=== PATIENT | male | born 1970 | race Hispanic/Latino ===

== ENCOUNTER 2024-05-23 06:22 | Emergency (ER) | payer OTHER ==
[~2024-05-23] VITALS: Ht 172.7 cm; Wt 83.9 kg
--- NOTE | 2024-05-23 06:35 | NUR ---
PATIENT REPORTS FRONTAL HEADACHE PRESSURE ONSET FRIDAY AFTERNOON. 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 WAS ADVISED BY [facility] CALL [facility] NURSE TO GO TO AND ED FOR EVALUATION AND CT SCAN
--- NOTE | 2024-05-23 07:07 | ERN ---
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 Since then he has had an increasing headache that has been become severe disabling and unremitting. The headache is centered on his forehead and behind his eyes. He had tried narcotics Tylenol and ibuprofen and none of them failed to relieve the headache. Patient does not have dizziness or vertigo, but he does have photosensitivity. Timing/Duration: 24 hours, getting worse Severity: severe Associated Symptoms: headaches Allergies: Coded Allergies: No Known Allergies (Unverified Allergy, Unknown, 05/23/24) Past Medical History Past Medical History: No Pertinent History Past Surgical History: None ROS Dictation CONSTITUTIONAL: NO CHILLS, NO FEVER, NO WEAKNESS, NO DIAPHORESIS, NO MALAISE. HEAD/FACE: NO SIGNS OF TRAUMA. EENT: NO EYE PAIN, NO BLURRED VISION, NO TEARING, NO DOUBLE VISION, NO EAR P AIN, NO EAR DISCHARGE, NO NOSE PAIN, NO NASAL CONGESTION, NO THROAT PAIN, NO THROAT SWELLING, NO MOUTH PAIN. RESPIRATORY: NO COUGH, NO ORTHOPNEA, NO SOB, NO STRIDOR, NO WHEEZING. CARDIOVASCULAR: NO CHEST PAIN, NO EDEMA, NO PALPITATIONS, NO SYNCOPE. GASTROINTESTINAL/ABDOMINAL: NO ABDOMINAL PAIN, NO CONSTIPATION, NO DIARRHEA, NO NAUSEA, NO VOMITING. GENITOURINARY: NO ABNORMAL DISCHARGE, NO DYSURIA, NO FREQUENT URINATION, NO HEMATURIA. NO COMPLAINTS OF PAIN IN THE GENITALS. MUSCULOSKELETAL: NO BACK PAIN, NO GOUT, NO JOINT PAIN, NO JOINT SWELLING, NO MUSCLE PAIN, NO MUSCLE STIFFNESS, NO NECK PAIN. INTEGUMENTARY: NO CHANGE IN COLOR, NO CHANGE IN HAIR/NAILS, NO DRYNESS, NO LESION, NO LUMPS, NO RASH. NEUROLOGICAL/PSYCH: NO ANXIETY, NOT DEPRESSED, NO EMOTIONAL PROBLEM, NO HEADACHE, NO NUMBNESS, NO PRE-EXISTING DEFICIT, NO HISTORY OF SEIZURES, NO TREMORS, NO WEAKNESS. HEMATOLOGIC/LYMPHATIC: NOT ANEMIC, NO HISTORY OF BLOOD CLOTS, NO APPARENT BLEEDING, NO BRUISING, GLANDS NOT SWOLLEN. ALL SYSTEMS NEGATIVE, EXCEPT NOTED. Neuro: (+) headache Physical Exam Physical Exam Dictation VITAL SIGNS: REVIEWED. GENERAL APPEARANCE: ALERT, ORIENTED X3, NO ACUTE DISTRESS, OBESE. HEAD AND FACE: NON-TRAUMATIC. EYES: PERRL, PINK CONJUNCTIVAS, EYELID NO TRAUMA, ANTERIOR CHAMBER CLEAR. EARS: PINNAS INTACT AND NO SIGNS OF TRAUMA OR ERYTHEMA. EAR CANALS CLEAR AND NO DISCHARGE. TMS NO ERYTHEMA. NOSE: NO DISCHARGE, NO BLEEDING. OROPHARYNX: MOUTH NORMAL, TEETH NO CARIES, TONGUE PINK. PHARYNX CLEAR, LEFT JAW PAIN ON PALPATION NECK: SUPPLE, NON-TENDER, NO THYROMEGALY, NO MASSES, NO JVD, NO BRUITS. BREAST: DEFERRED. CHEST: NO TENDERNESS, NO CREPITUS, NO PARADOXICAL MOVEMENT, NO RETRACTIONS. LUNGS: CLEAR, WELL-VENTILATED, SYMMETRIC, NO RALES, NO WHEEZING, NO RHONCHI, NO STRIDOR, GOOD BREATH SOUNDS BILATERALLY. HEART: REGULAR RATE, REGULAR RHYTHM, NO MURMUR, NO GALLOPS. VASCULAR: NO PERIPHERAL EDEMA. ABDOMEN: SOFT, POSITIVE BOWEL SOUNDS, NONDISTENDED, NO GUARDING, NONTENDER, NO REBOUND, NO MASSES NO HEPATOMEGALY, NO SPLENOMEGALY, NO LOGAN'S SIGN, NO HERNIAS. RECTAL: DEFERRED. GENITAL: DEFERRED. NEUROLOGICAL: NORMAL SPEECH, GROSS MOTOR FUNCTION INTACT, GROSS SENSORY FUNCTION INTACT. MUSCULOSKELETAL: NECK NONTENDER, FULL RANGE OF MOTION, BACK NONTENDER, FULL RANGE OF MOTION. EXTREMITIES: NONTENDER, FULL RANGE OF MOTION. SKIN: COLOR PINK, DRY, NO TURGOR, NO RASH, NO LACERATIONS, NO ABRASIONS, NO CONTUSIONS. LYMPHATICS: DEFERRED. General Appearance: (+) severe distress Orientation: (+) alert, (+) oriented x 3 Head/Face Trauma: No Eye: right eye abnormal pupil; bilateral eye normal inspection, bilateral eye PERRL, bilateral eye EOMI Eyes Comment Right pupil seems to be larger than left pupil. Ear, Nose, Throat: (+) hearing grossly normal, (+) normal ENT inspection, (+) moist mucous membraine Neck: (+) normal inspection, (+) supple, (+) full range of motion, (+) no JVD Respiratory: (+) chest non-tender, (+) well ventilated Heart: (+) regular Vascular: (+) no edema, (+) normal peripheral pulse Gastrointestinal: (+) soft, (+) non-tender, (+) bowel sound present Back: (+) normal inspection, (+) no CVA tenderness Neurologic/Psychiatric: (+) normal speech, (+) no motor defecits Skin: (+) normal color, (+) warm/dry Results Laboratory and Microbiology Labs Reviewed?: Yes EKG/XRAY/US/CT/MRI CT Scan Comment [address] [place], [place] [id number] IMAGING REPORT Signed PATIENT: DESIRE LITTLEJOHN MR#: [id number] : 1970 SEX: M AGE: 54 LOCATION: [facility] ORDER 8 STATUS: REG REPORT#: [id number] SERVICE 6 REASON: headache ORDERING PHYSICIAN: BASSAM DIAZ MD PROCEDURE: HEAD WO - CT HEAD/BRAIN W/O CONTRAST CT HEAD WITHOUT CONTRAST INDICATION: Headache TECHNIQUE: Noncontrast axial helical CT images from the vertex through the skull base using 5 mm slice thickness without contrast material. CT was performed with one or more of the following dose reduction techniques: Automated exposure control, adjustment of the mA and/or kV according to patient size, or use of iterative reconstruction technique. COMPARISON: None FINDINGS: The cerebral and cerebellar hemispheres are age-appropriate in appearance. No evidence for abnormal extra-axial fluid collections or masses. The ventricles and sulci are normal in size and configuration. No evidence for intracranial parenchymal, epidural, or subdural hemorrhage, mass effect or midline shift. The madsen-white matter differentiation is well preserved. No secondary evidence to suggest acute ischemia. The brainstem and cerebellum appear normal. The visualized orbits appear unremarkable. The visible paranasal sinuses and mastoid air cells are clear. The calvarium appears normal. IMPRESSION: No acute intracranial process identified. DICTATED BY: SASHA BRUNO MD DATE: 05/23/24803 ELECTRONICALLY SIGNED BY: SASHA BRUNO MD DATE: 05/23/24809 [facility] MDM: DIFFERENTIAL DIAGNOSIS: MIGRAINE, TMJ, TENSION HEADACHE, DEHYDRATION, PATIENT IS A 54-YEAR-OLD GENTLEMAN COMING IN TO BE EVALUATED FOR A HEADACHE. PER PATIENT HE WAS INTUBATED THREE DAYS AGO DUE TO LARYNGEAL MASS THAT WAS EXCISED. HE STATES THAT HE HAS BEEN HAVING HEADACHES ARISING FROM THE LEFT JAW REGION. HE WAS ABLE TO TOLERATE ORAL INTAKE IN HIS NOT COMPLAINING OF DYSPHAGIA. CT DID NOT DISCLOSE ACUTE FINDINGS. PAIN IS LOCALIZED IN THE LEFT JAW REGION IN HIS EXACERBATED WITH PALPATION I ADVISED PATIENT TO TAKE ANTI- INFLAMMATORY AND ICING OF THE JAW. PATIENT WILL BE DISCHARGED IN STABLE CONDITION. ED Course Orders Procedure Category Date Status Time Ct Head/Brain W/O CT 05/23/24 Resulted Contrast 07:07 Acetaminophen 500mg PHA 05/23/24 Complete Tab (Tylenol 500mg T 07:30 0.9%Nacl 1000ml (Ns PHA 05/23/24 Complete 1000ml) 09:00 Prochlorperazine PHA 05/23/24 Complete 10mg/2ml Inj 09:00 Ketorolac PHA 05/23/24 Complete Tromethamine 15mg/Ml 09:00 Diphenhydramine Hcl PHA 05/23/24 Complete (Benadryl Inj) 09:00 Current Medications Medications (Trade) Dose Ordered Sig/Bebeto Route PRN Reason Start Time Stop Time Status Last Admin Dose Admin Acetaminophen (TYLenol 500MG TAB) 1,000 mg ONCE ONCE PO 05/23/24 07:30 05/23/24 07:31 DC 05/23/24 07:28 Diphenhydramine HCl (BENAdryl INJ) 25 mg ONCE ONCE IV 05/23/24 09:00 05/23/24 09:01 DC 05/23/24 08:41 Ketorolac Tromethamine (toRADol) 15 mg ONCE ONCE IV 05/23/24 09:00 05/23/24 09:01 DC 05/23/24 08:41 Prochlorperazine Edisylate (Compazine 10mg/ 2ml Inj) 10 mg ONCE ONCE IV 05/23/24 09:00 05/23/24 09:01 DC 05/23/24 08:41 Sodium Chloride 1,000 ml @ 0 mls/hr ONCE ONCE IV 05/23/24 09:00 05/23/24 09:01 DC Vital Signs Date Time Temp Pulse Resp B/P (MAP) Pulse Ox O2 Delivery O2 Flow Rate FiO2 05/23/24 06:31 66 17 146/91 97 Room Air* 0 21 05/23/24 06:24 96.8 68 16 147/104 98 Room Air DX & DISP Disposition: Discharge Departure Impression: Primary Impression: TMJ (sprain of temporomandibular joint) Additional Impression: Tension headache Condition: Stable Scripts Lactulose (Lactulose) 10 Gram/15 Ml Solution 30 ML PO BID for constipation, #500 ML 0 Refills Prov: JENNIFER ARGUELLO MD 05/23/24 Naproxen (Naproxen) 500 Mg Tablet 1 TAB PO BID for pain for 10 Days, #20 TAB 0 Refills Prov: JENNIFER ARGUELLO MD 05/23/24 Methocarbamol (Robaxin) 750 Mg Tab 1 TAB PO BID for 5 Days, #10 TAB 0 Refills Prov: JENNIFER ARGUELLO MD 05/23/24 Additional Instructions: FOLLOW-UP WITH PRIMARY CARE PROVIDER IN 1 TO 2 DAYS. TAKE MEDICATIONS DIRECTED HERE IN THE EMERGENCY ROOM. OKAY TO CONTINUE HOME MEDICATIONS UNLESS OTHERWISE DISCUSSED DURING YOUR VISIT IN THE EMERGENCY ROOM TODAY. RETURN TO YOUR NEAREST EMERGENCY ROOM IF SYMPTOMS WORSEN OR IF THERE IS NO IMPROVEMENT. CALL 911 IF YOU NEED IMMEDIATE ASSISTANCE. TAKE TYLENOL [id number] NEEDED AND IF NO CONTRAINDICATIONS ARE PRESENT. INCREASE ORAL HYDRATION. A WOUND CULTURE OR URINE CULTURE WAS ORDERED HERE IN THE EMERGENCY ROOM DEPARTMENT PLEASE FOLLOW-UP WITH PRIMARY CARE PROVIDER AND ADVISE THEM TO GET REPEAT PORTS FROM OUR FACILITY. IF YOU HAD ANY INÉS WRAP/SPLINTS THAT WERE APPLIED HERE, PLEASE DO NOT REMOVE THEM UNTIL YOU SEE YOUR PRIMARY CARE OR SPECIALTY. REFERRALS: Referrals: SELF,REFERRAL (PCP) DESIRE ESPINOZA MD Time of Disposition: 09:14 BASSAM DIAZ MD May 23, 2024 07:07 JENNIFER ARGUELLO MD May 23, 2024 09:16
[2024-05-23] MEDS: acetaMINOPHEN 500 MG TABLET PO ONE (07:28)
--- NOTE | 2024-05-23 07:31 | NUR ---
PT IS TAKEN TO CT SCAN.
--- NOTE | 2024-05-23 08:10 | HMCIMG ---
CT HEAD WITHOUT CONTRAST INDICATION: Headache TECHNIQUE: Noncontrast axial helical CT images from the vertex through the skull base using 5 mm slice thickness without contrast material. CT was performed with one or more of the following dose reduction techniques: Automated exposure control, adjustment of the mA and/or kV according to patient size, or use of iterative reconstruction technique. COMPARISON: None FINDINGS: The cerebral and cerebellar hemispheres are age-appropriate in appearance. No evidence for abnormal extra-axial fluid collections or masses. The ventricles and sulci are normal in size and configuration. No evidence for intracranial parenchymal, epidural, or subdural hemorrhage, mass effect or midline shift. The madsen-white matter differentiation is well preserved. No secondary evidence to suggest acute ischemia. The brainstem and cerebellum appear normal. The visualized orbits appear unremarkable. The visible paranasal sinuses and mastoid air cells are clear. The calvarium appears normal. IMPRESSION: No acute intracranial process identified.
[2024-05-23] MEDS: PROCHLORPERAZINE 10MG/2ML INJ IV ONE (08:41)
[2024-05-23] MEDS: DiphenhydrAMINE HCL 50 MG/ML VIAL IV ONE (08:41)
[2024-05-23] MEDS: ketOROlac 15MG/ML VIAL (15MG/ML) IV ONE (08:41)
[2024-05-23] MEDS ORDERED: LACT10SO85 PO (09:15)
[2024-05-23] MEDS ORDERED: METH-662 PO (09:15)
[2024-05-23] MEDS ORDERED: NAPR-1194 PO (09:15)
[2024-05-23] MEDS: 0.9%NACL 1000ML 1,000 ML IV ONE (10:05)
[2024-05-23 10:08] VITALS: BP 139/92; PULSE 62; RESP 18; TEMP 98; O2SAT 98
== END 2024-05-23 10:14 | disposition home or self-care (01) ==
LOC: EDH 06:22
DX: M26.602 Left temporomandibular joint disorder, unspecified (principal); G44.209 Tension-type headache, unspecified, not intractable
CPT/HCPCS: 99285; 96374; 70450; 96375; 96361; J1885; J1200; J7030; J0780